=== PATIENT | male | born 1960 | race Caucasian/White ===

== ENCOUNTER → 2016-11-08 | Outpatient (CLI) | payer OTHER ==
--- NOTE | ~2016-11-08 | CT57 ---
[facility] A Service of [facility] RADIOLOGY TEXT RESULTS PATIENT: JORDEN BYRNES LOCATION: [facility] : 56 UNIT #: [id number] AGE: [address]: MEERA ARMSTRONG SEX: M ORDER DR: [id number] [facility]. [place], [place] [address] [id number] O MR#: [id number] Acc #: [id number] NAME: JORDEN BYRNES : 1960 SEX: M STUDY DATE/TIME: 11/08/2016 15:27 UNIT: [facility] ROOM: STUDY DESCRIPTION: CT Chest Wo Cont Attending Physician: Nemo Armstrong M.D. Referring Physician: Linwood Armijo M.D. Ordering Physician: Physician Non-Staff Primary Care Physician: No Primary Care Physician MEDICAL IMAGING REPORT This report is preliminary unless electronic signature is present EXAM CT chest without contrast. HISTORY 56-year-old male history of COPD, O2 dependent, 2-month history of shortness of air, coughing. COMPARISON Portable chest, 03/03/2016. TECHNIQUE Thin section axial images performed through the chest without contrast. Multiplanar reconstructed images reviewed at a workstation. This CT exam was performed with one or more of the following radiation dose reduction techniques: automatic exposure control, adjustment of mA and/or kV according to patient size, and iterative reconstruction. FINDINGS There is a small amount of right middle lobe atelectasis or scarring. No focal airspace disease or consolidation. No nodules or mass lesions identified. Trachea and bronchi unremarkable. Heart, aorta, and pulmonary vessels are unremarkable. There is a few small mediastinal lymph nodes, none appear pathologically enlarged. Visualized upper abdomen normal. Osseous structures, thoracic inlet, and extrathoracic soft tissues appear normal. IMPRESSION Minimal right middle lobe atelectasis or scarring. No CT evidence of underlying pulmonary disease, though by report, the patient does demonstrate early emphysema. [facility] A Service of [facility] RADIOLOGY TEXT RESULTS PATIENT: JORDEN BYRNES LOCATION: [facility] : 56 UNIT #: [id number] AGE: [address]: MEERA ARMSTRONG SEX: M ORDER DR: Dictated by... Oj Tiwari M.D. THIS IS AN ELECTRONICALLY VERIFIED REPORT Oj Tiwari M.D. at 11/09/2016 3:58 PM ABHILASH/varun TD: 11/09/2016 12:34 JOB #: [id number] MEDICAL IMAGING REPORT COPY
== END | disposition home or self-care (01) ==
LOC: CCAT 14:37
DX: J44.1 Chronic obstructive pulmonary disease with (acute) exacerbation (principal); J45.909 Unspecified asthma, uncomplicated; Z99.81 Dependence on supplemental oxygen; R91.8 Other nonspecific abnormal finding of lung field
CPT/HCPCS: 71250